=== PATIENT | male | born 1970 | race Two or more races ===

== ENCOUNTER 2019-01-12 00:39 | Emergency (ER) | payer OTHER ==
[~2019-01-12] VITALS: Ht 175.3 cm; Wt 74.8 kg
== END 2019-01-12 04:06 | disposition home or self-care (01) ==
LOC: ER 00:39
DX: R51 Headache (principal); I10 Essential (primary) hypertension

== ENCOUNTER 2019-12-06 09:56 | Emergency (ER) | payer OTHER ==
[~2019-12-06] VITALS: Ht 175.3 cm; Wt 81.6 kg
[2019-12-06] MEDS ORDERED: LOSARTAN POTASS50 MG PO (10:07)
== END 2019-12-06 15:34 | disposition home or self-care (01) ==
LOC: ER 09:56
DX: R60.0 Localized edema (principal); L08.89 Other specified local infections of the skin and subcutaneous tissue; S80.11XS Contusion of right lower leg, sequela; W18.09XS Striking against other object with subsequent fall, sequela